=== PATIENT | male | born 1985 | race Two or more races ===

== ENCOUNTER 2016-12-12 20:50 | Emergency (ER) | payer MEDICAID, OTHER ==
[~2016-12-12] VITALS: Ht 177.8 cm; Wt 72.6 kg
[2016-12-12] MEDS ORDERED: Ketorolac 30mg Inj IV ONE (21:15)
--- NOTE | 2016-12-12 21:20 | Emergency Room Report ---
History of Present Illness General Chief Complaint: Abdominal Pain Source: Patient Present Illness HPI This is a 31-year-old male with no past medical history. He presents with chief complaint of right upper quadrant pain. Onset was about 2 hours ago. This occurred while he was drinking alcohol. He said was drinking heavily today. Denies any drug use. No nausea no vomiting. Pain is 8/10. Worse with palpation. Denies any other complaint. Similar symptom in the past. Allergies: Coded Allergies: PENICILLINS (Verified Allergy, Unknown, 12/12/16) Uncoded Allergies: PENICILLIN (Allergy, Unknown, 12/12/16) Patient History Past Medical History: see triage record, old chart reviewed Past Surgical History: other Pertinent Family History: none Social History: Reports: alcohol use Immunizations: other Reviewed Nursing Documentation: PMH: Agreed, PSxH: Agreed Nursing Documentation-PMH Past Medical History: No Stated History Review of Systems Eye: Denies: blurred vision, eye pain ENT: Denies: ear pain, nose congestion, throat swelling Respiratory: Denies: cough, shortness of breath Cardiovascular: Denies: chest pain, palpitations Gastrointestinal: Reports: abdominal pain, Denies: diarrhea, nausea, vomiting Musculoskeletal: Denies: back pain, joint pain Skin: Denies: rash Neurological: Denies: headache, numbness Endocrine: Denies: increased thirst, increased urine Hematologic/Lymphatic: Denies: easy bruising All Other Systems: negative except mentioned in HPI Physical Exam Vital Signs Date Time Temp Pulse Resp B/P Pulse Ox O2 Delivery O2 Flow Rate FiO2 12/12/16 21:01 98.1 90 15 130/90 98 Room Air vitals normal Sp02 EP Interpretation: reviewed, normal General Appearance: well appearing, no apparent distress, alert Head: normocephalic, atraumatic Eyes: bilateral eye EOMI, bilateral eye PERRL ENT: hearing grossly normal, normal pharynx Neck: full range of motion, supple, no meningismus Respiratory: chest non-tender, lungs clear, normal breath sounds Cardiovascular #1: regular rate, rhythm, no murmur Gastrointestinal: normal bowel sounds, no mass, no organomegaly, no bruit, non- distended, tenderness - Mild right upper quadrant pain Musculoskeletal: back normal, gait/station normal, normal range of motion Psychiatric: mood/affect normal Skin: warm/dry Medical Decision Making Diagnostic Impression: Primary Impression: Abdominal pain of unknown etiology Additional Impression: Alcohol abuse ER Course Is present with abdominal pain most likely secondary to alcohol abuse. He is eating and drinking without a problem. We'll discharge home. Notice of obstruction or acute abdomen. Lab Results Impression labs unremarkable Last Vital Signs Date Time Temp Pulse Resp B/P Pulse Ox O2 Delivery O2 Flow Rate FiO2 12/12/16 21:01 98.1 90 15 130/90 98 Room Air Status: improved Disposition: HOME, SELF-CARE Condition: Stable Patient Instructions: Abdominal Pain, Adult Additional Instructions: Abstain from drugs and alcohol. Followup with your Dr. in 7 days. Return if symptom worsen. MERCED DICKSON M.D. Dec 12, 2016 21:20
[2016-12-12] MEDS ORDERED: Tubing IV Cassette IV ONE (21:27)
[2016-12-12 21:47] LABS: BASOPHILS % (AUTO) 0.7 % (0.0-2.0); EOSINOPHILS % (AUTO) 2.8 % (0.0-3.0); LYMPHOCYTES % (AUTO) 48.5 % (20.0-45.0); MEAN CORPUSCULAR HEMOGLOBIN 35.7 PG (27.0-31.0); MEAN CORPUSCULAR HGB CONC 35.9 G/DL (32.0-36.0); MEAN CORPUSCULAR VOLUME 99 FL (80-99); MEAN PLATELET VOLUME 4.6 FL (6.5-10.1); MONOCYTES % (AUTO) 5.5 % (1.0-10.0); NEUTROPHILS % (AUTO) 42.6 % (45.0-75.0); PLATELET COUNT 171 K/UL (150-450); RED BLOOD COUNT 3.94 M/UL (4.70-6.10); RED CELL DISTRIBUTION WIDTH 11.1 % (11.6-14.8)
[2016-12-12 22:09] LABS: ALANINE AMINOTRANSFERASE 13 U/L (3-41); ALBUMIN/GLOBULIN RATIO 1.6 (1.0-2.7); ANION GAP 13 (5-15); ASPARTATE AMINO TRANSFERASE 17 U/L (5-40); CALCIUM 8.8 mg/dL (8.6-10.2); CARBON DIOXIDE 28 mEQ/L (20-30); CHLORIDE 99 mEQ/L (98-107); CREATININE 0.8 mg/dL (0.7-1.2); GLOMERULAR FILTRATION RATE > 60 mL/min (>60); HEMOLYSIS 5; LIPASE 52 U/L (< 60); SODIUM 140 mEQ/L (135-145); TOTAL PROTEIN 6.4 g/dL (6.6-8.7)
[2016-12-12 22:40] VITALS: BP 159/89
[2016-12-12 22:49] LABS: KETONES,URINE NEGATIVE (NEGATIVE); LEUKOCYTE ESTERASE ,URINE NEGATIVE (NEGATIVE); NITRITE,URINE NEGATIVE (NEGATIVE); PH,URINE 6.5 (4.5-8.0); PROTEIN,URINE NEGATIVE (NEGATIVE); UROBILINOGEN,URINE NORMAL MG/DL (0.0-1.0)
[2016-12-12 22:50] LABS: APPEARANCE,URINE CLEAR
[2016-12-12 23:07] VITALS: BP 159/89
== END 2016-12-12 23:10 | disposition home or self-care (01) ==
LOC: EDBD 20:50 → EMR 22:15
DX: R10.11 Right upper quadrant pain (principal); F10.10 Alcohol abuse, uncomplicated
CPT/HCPCS: 36415; 80053; 81003; 83690; 85025; 96360; 96374; 99284; J1885

== ENCOUNTER 2017-01-05 03:57 | Emergency (ER) | payer MEDICAID ==
[~2017-01-05] VITALS: Ht 154.9 cm; Wt 68.5 kg
[2017-01-05 03:57] VITALS: BP 132/87
[~2017-01-05 03:57] MED LIST: QUETIAPINE FUMA25 MG ORAL; RISPERDAL2 MG ORAL; XANAX0.25 MG ORAL
--- NOTE | 2017-01-05 05:45 | Emergency Room Report ---
History of Present Illness General Chief Complaint: Behavioral Complaint Source: Patient Present Illness HPI The patient was discharged from [facility] to [place]. The reliability ago apparently is because he's been hearing voices. The patient denies suicidal or homicidal ideation. His evaluated [facility] yesterday. He's been in custody time since he was evaluated seizures. He received his medications. The patient claims that he takes Risperdal 3 mg, Seroquel 100 mg and Xanax 0.25 mg of. He takes Risperdal and Seroquel at night once a day. He was not given any medication. He has been observed the entire time between the evaluation at [facility] and his presentation here. No headache, NVD, fevers, cough, URI, NVD, dysuria, bleeding/bruising, extremity pain, abdominal pain, CP, palps. Allergies: Coded Allergies: PENICILLINS (Verified Allergy, Unknown, 12/12/16) Uncoded Allergies: PENICILLIN (Allergy, Unknown, 12/12/16) Patient History Past Medical History: see triage record, old chart reviewed Social History: Reports: alcohol use, Denies: drug use, smoking Social History Narrative released from [facility] - homeless Reviewed Nursing Documentation: PMH: Agreed, PSxH: Agreed Nursing Documentation-PMH History Of Psychiatric Problem: Yes - bipolar schizo,depression Review of Systems All Other Systems: negative except mentioned in HPI Physical Exam Vital Signs Date Time Temp Pulse Resp B/P Pulse Ox O2 Delivery O2 Flow Rate FiO2 01/05/17 03:42 98.2 81 16 132/87 98 Room Air Sp02 EP Interpretation: reviewed, normal General Appearance: well appearing, no apparent distress, GCS 15 Head: normocephalic, atraumatic Eyes: bilateral eye PERRL, bilateral eye normal inspection ENT: moist mucus membranes Neck: supple Respiratory: lungs clear, normal breath sounds Cardiovascular #1: regular rate, rhythm Cardiovascular #2: 2+ radial (R) Gastrointestinal: normal inspection, normal bowel sounds, non tender, no mass, non-distended Musculoskeletal: back normal, gait/station normal, normal range of motion Neurologic: alert, oriented x3, motor strength/tone normal, sensory intact, cerebellar normal, normal gait, speech normal Psychiatric: mood/affect normal, no suicidal/homicidal ideation, no delusions, other - c/o many thoughts in brain - like voices Skin: normal inspection, warm/dry Medical Decision Making Diagnostic Impression: Primary Impression: Schizophrenia Qualified Codes: F20.9 - Schizophrenia, unspecified Additional Impression: Alcohol use ER Course The patient presents with hearing voices and having trouble with his thoughts. Denies any suicidal or homicidal ideation. Has a history of schizophrenia. Review of labs from [facility] yesterday is significant for a blood alcohol 0.05 gm/ dl. At this point he's been in custody throughout that time and has no access to alcohol or other drugs. The rest of the labs were remarkable for a glucose of 118 and an elevated AST. These are not significant findings and the patient is medically clear at this time. He'll be given medication with Risperdal and Seroquel. He declines taking Xanax. If the patient had a stable place to be discharged to we would be able to discharge him. The patient states he is homeless and therefore we'll have a social director evaluate him in the morning. The patient is not suicidal or homicidal and does not need to be placed on hold. Improved with medication. Signed out to Dr. Askew. See scanned reports from [facility]. Last Vital Signs Date Time Temp Pulse Resp B/P Pulse Ox O2 Delivery O2 Flow Rate FiO2 01/05/17 12:12 97.8 75 16 108/66 98 Room Air Status: improved Disposition: HOME, SELF-CARE Condition: Improved Referrals: [facility],REFERRING (PCP) Rick Almendarez M.D. January 05, 2017 05:45
[2017-01-05 08:30] VITALS: BP 108/66
[2017-01-05 12:12] VITALS: BP 108/66
== END 2017-01-05 12:12 | disposition home or self-care (01) ==
LOC: EDBD 03:57 → EMR 04:15
DX: F20.9 Schizophrenia, unspecified (principal); Z72.89 Other problems related to lifestyle; Z88.0 Allergy status to penicillin
CPT/HCPCS: 80300; 99283

== ENCOUNTER 2017-09-15 16:04 | Emergency (ER) | payer MEDICAID ==
[~2017-09-15] VITALS: Ht 175.3 cm; Wt 68.0 kg
[2017-09-15] MEDS ORDERED: XANAX0.5 MG ORAL (16:43)
[2017-09-15] MEDS ORDERED: SEROQUEL200 MG ORAL (16:43)
[2017-09-15] MEDS ORDERED: TRILEPTAL150 M3 PO ×2 (16:43→19:36)
[2017-09-15] MEDS ORDERED: RISPERDAL1 MG PO (16:43)
[2017-09-15] MEDS ORDERED: QUEtiapine 200mg tab ORAL ONE (18:30)
[2017-09-15] MEDS ORDERED: OXcarbazepine 150mg tab ORAL ONE (18:30)
[2017-09-15 18:50] LABS: EOSINOPHILS % (AUTO) 2.6 % (0.0-3.0); HEMOGLOBIN 12.2 G/DL (14.2-18.0); LYMPHOCYTES % (AUTO) 43.3 % (20.0-45.0); MEAN CORPUSCULAR VOLUME 96 FL (80-99); MONOCYTES % (AUTO) 6.6 % (1.0-10.0); NEUTROPHILS % (AUTO) 46.5 % (45.0-75.0); PLATELET COUNT 375 K/UL (150-450); RED BLOOD COUNT 3.95 M/UL (4.70-6.10); RED CELL DISTRIBUTION WIDTH 10.8 % (11.6-14.8); WHITE BLOOD COUNT 5.7 K/UL (4.8-10.8)
[2017-09-15 18:55] LABS: ANION GAP 9 mmol/L (5-15); BLOOD UREA NITROGEN 17 mg/dL (7-18); CALCIUM 9.4 MG/DL (8.5-10.1); CARBON DIOXIDE 29 MMOL/L (21-32); CHLORIDE 102 MMOL/L (98-107); POTASSIUM 3.7 MMOL/L (3.5-5.1); SODIUM 140 MMOL/L (136-145)
[2017-09-15 19:01] LABS: ALANINE AMINOTRANSFERASE 27 U/L (12-78); ALKALINE PHOSPHATASE 78 U/L (46-116); ASPARTATE AMINO TRANSFERASE 21 U/L (15-37); BILIRUBIN,TOTAL 0.7 MG/DL (0.2-1.0)
[2017-09-15] MEDS ORDERED: RISPERDAL3 MG PO (19:36)
[2017-09-15] MEDS ORDERED: QUETIAPINE FUM200 MG ORAL (19:36)
[2017-09-15 20:29] VITALS: BP 123/80
--- NOTE | 2017-09-15 21:47 | Emergency Room Report ---
History of Present Illness General Chief Complaint: Behavioral Complaint Source: Patient Present Illness HPI The patient is a 32-year-old male with a stated history of schizophrenia and anxiety presenting for evaluation and medication refill. He states that he has been out of his psychiatric medications for one week. She has not been able to follow up with psychiatry over the past 6 months. He states that he has been stable on his psychiatric medications prior to running out and did not have any hallucinations. He is now beginning to have auditory hallucinations but is unable to make out what is being said. He denies other symptoms including nausea, vomiting, fever, chills, shortness of breath, chest pain. he denies suicidal ideation Allergies: Coded Allergies: PENICILLINS (Verified Allergy, Unknown, 12/12/16) Uncoded Allergies: PENICILLIN (Allergy, Unknown, 12/12/16) Patient History Past Medical History: see triage record Pertinent Family History: none Reviewed Nursing Documentation: PMH: Agreed, PSxH: Agreed Review of Systems All Other Systems: negative except mentioned in HPI Physical Exam Vital Signs Date Time Temp Pulse Resp B/P (MAP) Pulse Ox O2 Delivery O2 Flow Rate FiO2 09/15/17 16:38 97.9 99 22 123/80 100 Room Air Sp02 EP Interpretation: reviewed, normal General Appearance: no apparent distress, alert, GCS 15, non-toxic Head: normocephalic, atraumatic Eyes: bilateral eye normal inspection, bilateral eye PERRL ENT: hearing grossly normal, normal pharynx, no angioedema, normal voice Neck: full range of motion, supple/symm/no masses Respiratory: chest non-tender, lungs clear, normal breath sounds, speaking full sentences Cardiovascular #1: regular rate, rhythm, no edema Musculoskeletal: back normal, gait/station normal, normal range of motion, non- tender Neurologic: alert, oriented x3, responsive, motor strength/tone normal, sensory intact, speech normal Psychiatric: judgement/insight normal, memory normal, mood/affect normal, no suicidal/homicidal ideation Skin: normal color, no rash, warm/dry, well hydrated Lymphatic: no adenopathy Medical Decision Making PA Attestation Dr. Almendarez is my supervising physician. Patient management was discussed with my supervising physician Diagnostic Impression: Primary Impression: Behavioral disorder ER Course The patient is a 32-year-old male with a stated history of schizophrenia and anxiety presenting for evaluation and medication refill. Differential diagnoses considered but not limited to suicidal ideation, homicidal ideation, depression, psychosis PE: No apparent distress. A&Ox4 PERRL. EOMI. Normal mentation. RRR. No MRG Lungs CTA bilat Abdomen: Normal appearance. Non distended. No ecchymosis. Normal BS. Non TTP. No McBurney point tenderness. No guarding. Skin is warm and dry, no rashes. Labs: Unremarkable except for a positive drug screen for amphetamine The patient is given his Risperdal, Seroquel, and Trileptal and states that he is feeling better. He states the hallucinations have subsided. Is discharged home with prescription for these medications and will followup with his primary doctor and psychiatrist soon as possible. He is given information regarding [facility] Laboratory Tests Test 09/15/17 17:00 09/15/17 18:24 Urine Opiates Screen Negative (NEGATIVE) Urine Barbiturates Screen Negative (NEGATIVE) Phencyclidine (PCP) Screen Negative (NEGATIVE) Urine Amphetamines Screen Positive (NEGATIVE) H Urine Benzodiazepines Screen Negative (NEGATIVE) Urine Cocaine Screen Negative (NEGATIVE) Urine Marijuana (THC) Screen Negative (NEGATIVE) White Blood Count 5.7 K/UL (4.8-10.8) Red Blood Count 3.95 M/UL (4.70-6.10) L Hemoglobin 12.2 G/DL (14.2-18.0) L Hematocrit 38.0 % (42.0-52.0) L Mean Corpuscular Volume 96 FL (80-99) Mean Corpuscular Hemoglobin 31.0 PG (27.0-31.0) Mean Corpuscular Hemoglobin Concent 32.2 G/DL (32.0-36.0) Red Cell Distribution Width 10.8 % (11.6-14.8) L Platelet Count 375 K/UL (150-450) Mean Platelet Volume 4.1 FL (6.5-10.1) L Neutrophils (%) (Auto) 46.5 % (45.0-75.0) Lymphocytes (%) (Auto) 43.3 % (20.0-45.0) Monocytes (%) (Auto) 6.6 % (1.0-10.0) Eosinophils (%) (Auto) 2.6 % (0.0-3.0) Basophils (%) (Auto) 1.0 % (0.0-2.0) Sodium Level 140 MMOL/L (136-145) Potassium Level 3.7 MMOL/L (3.5-5.1) Chloride Level 102 MMOL/L (98-107) Carbon Dioxide Level 29 MMOL/L (21-32) Anion Gap 9 mmol/L (5-15) Blood Urea Nitrogen 17 mg/dL (7-18) Creatinine 1.0 MG/DL (0.55-1.30) Estimate Glomerular Filtration Rate > 60 mL/min (>60) Glucose Level 128 MG/DL (74-106) H Calcium Level 9.4 MG/DL (8.5-10.1) Total Bilirubin 0.7 MG/DL (0.2-1.0) Aspartate Amino Transferase (AST) 21 U/L (15-37) Alanine Aminotransferase (ALT) 27 U/L (12-78) Alkaline Phosphatase 78 U/L (46-116) Total Protein 7.9 G/DL (6.4-8.2) Albumin 4.0 G/DL (3.4-5.0) Globulin 3.9 g/dL Albumin/Globulin Ratio 1.0 (1.0-2.7) Salicylates Level 3.0 ug/mL (2.8-20) Acetaminophen Level < 2 MCG/ML (10-30) L Serum Alcohol 3 mg/dL Lab Results Impression Unremarkable except for a positive drug screen for amphetamine Last Vital Signs Date Time Temp Pulse Resp B/P (MAP) Pulse Ox O2 Delivery O2 Flow Rate FiO2 09/15/17 20:29 97.9 22 123/80 100 Room Air 09/15/17 16:38 99 Status: improved Disposition: HOME, SELF-CARE Condition: Improved Scripts Risperidone (RISPERDAL) 3 Mg Tablet 3 MG PO BEDTIME, #30 TAB Prov: TERZIAN,ZIGGY P.A. 09/15/17 Quetiapine Fumarate* (SEROQUEL*) 200 Mg Tablet 200 MG ORAL BEDTIME, #30 TAB Prov: TERZIAN,ZIGGY P.A. 09/15/17 Oxcarbazepine (TRILEPTAL) 150 Mg Tablet 150 MG PO BID, #60 TAB Prov: TERZIAN,ZIGGY P.A. 1/16/18 Patient Instructions: Schizophrenia Additional Instructions: I discussed my findings with the patient. All questions and concerns have been answered. Treatment and medication compliance have been addressed. Return to ED if symptoms worsen, new symptoms arise, or if needed for any reason. Patient verbalized understanding of discharge instructions. please followup with psychiatrist as soon as possible as was discussed ZIGGY SANDOVAL Sep 15, 2017 21:47
== END 2017-09-15 20:30 | disposition home or self-care (01) ==
LOC: EMR 17:20
DX: F20.9 Schizophrenia, unspecified (principal); F41.9 Anxiety disorder, unspecified; Z76.0 Encounter for issue of repeat prescription; Z88.0 Allergy status to penicillin; F15.10 Other stimulant abuse, uncomplicated
CPT/HCPCS: 36415; 80053; 80307; 80329; 85025; 96360; 99284

== ENCOUNTER 2019-05-18 20:04 | Emergency (ER) | payer MEDICAID ==
[~2019-05-18] VITALS: Ht 175.3 cm; Wt 62.1 kg
[~2019-05-18 20:04] MED LIST changes: +QUETIAPINE FUM200 MG ORAL; +RISPERDAL1 MG PO; +RISPERDAL3 MG PO; +SEROQUEL200 MG ORAL; +TRILEPTAL150 M3 PO; +XANAX0.5 MG ORAL
--- NOTE | 2019-05-18 20:17 | NUR ---
ED Nurse Note: Walk-in patient with complaints of bilateral feet pain because he has been walking for two days. Patient is homeless, will add to log and complete paperwork.
[2019-05-18 20:18] VITALS: BP 144/81
[2019-05-18] MEDS ORDERED: ACETAMINOPHEN500 M3 ORAL (21:00)
--- NOTE | 2019-05-18 21:12 | Emergency Room Report ---
History of Present Illness General Chief Complaint: Pain Source: Patient Present Illness Allergies: Coded Allergies: PENICILLINS (Verified Allergy, Unknown, 01/22/19) Uncoded Allergies: PENICILLIN (Allergy, Unknown, 12/12/16) Nursing Documentation-[facility] Past Medical History: No Stated History Physical Exam Vital Signs Date Time Temp Pulse Resp B/P (MAP) Pulse Ox O2 Delivery O2 Flow Rate FiO2 05/18/19 20:10 98.4 100 20 144/81 (102) 96 Room Air Medical Decision Making Diagnostic Impression: Primary Impression: Foot pain, bilateral Last Vital Signs Date Time Temp Pulse Resp B/P (MAP) Pulse Ox O2 Delivery O2 Flow Rate FiO2 05/18/19 20:18 98.4 100 20 144/81 96 Room Air Status: improved Disposition: HOME, SELF-CARE Condition: Stable Scripts Acetaminophen* (ACETAMINOPHEN EXTRA STRENGTH*) 500 Mg Tablet 500 MG ORAL Q8H PRN for Fever/Headache/Mild Pain, #10 TAB Prov: Tolu Huitron MD 05/18/19 Patient Instructions: Chronic Pain Tolu Huitron MD May 18, 2019 21:12
--- NOTE | 2019-05-18 21:17 | NUR ---
ED Nurse Note: Patient cleared for discharge and provided with resources for skilled nursing and substance abuse support.
[2019-05-18 21:18] VITALS: BP 144/81
== END 2019-05-18 21:18 | disposition home or self-care (01) ==
LOC: EMR 20:54
DX: M79.672 Pain in left foot (principal); M79.671 Pain in right foot; Z88.0 Allergy status to penicillin
CPT/HCPCS: 99282